=== PATIENT | female | born 1995 | race Caucasian/White ===

== ENCOUNTER 2017-06-05 16:28 | Emergency (ER) | payer BC ==
[2017-06-05 18:22] LABS: Hematocrit 40 % (35-47); Hemoglobin 13.4 g/dl (12.0-16.0); Mean Corpuscular HGB Conc 34 g/dl (31-36); Mean Corpuscular Hemoglobin 29 pg (27-31); Mean Corpuscular Volume 86 fL (80-97); Mean Platelet Volume 8 um3 (7.4-10.4); Red Blood Count 4.62 10^6/ul (4.0-5.4); Red Cell Distribution Width 14 % (10.5-15); White Blood Count 16.5 10^3/ul (3.5-10.8)
[2017-06-05 18:23] LABS: Add Diff/Slide Review? Manual Diff Added; Comments Flag Yes
[2017-06-05 18:37] LABS: Manual Entry Verification CAR0052; Mono Internal Control QC Line Present
[2017-06-05 18:42] LABS: Add Path Review? YES; Neutrophil % 30 % (38-83); RBC Morphology Normal (Normal); Reactive Lymph % 36 % (0-6)
[2017-06-05 18:58] VITALS: BP 136/84
--- NOTE | 2017-06-05 19:37 | ED ---
Kemal Nielson Auryana, scribed for Malcolm Covington MD on 06/05/17 at 1714 . Complex/Multi-Sys Presentation - HPI Summary HPI Summary: 21 year old female presents with fever and general illness starting 1 week ago that has gotten progressively worse. Patient reports that the fever started her symptoms, then with VÁSQUEZ, lymph node swelling, sore throat, and heat flashes. Patient was seen at - negative step and mono spot. Symptoms continued - exudates on tonsils and swelling. Seen again at - negative mono and UA showed signs of U.T.I. and given Rx for Clindamycin. Patient reports that most of the tonsilar swelling is gone, along with the white spots, but now still has sharp pain at the top right tonsil that radiates to the ear and has "purple spots". - History Of Current Complaint Chief Complaint: EDGeneral Time Seen by Provider: 06/05/17 16:45 Hx Obtained From: Patient Onset/Duration: Gradual Onset, Lasting Weeks, Still Present Timing: Constant Severity Currently: Mild Severity Initially: Mild Location: Pain At: - right ear by tonsil Associated Signs And Symptoms: Positive: Fever - Allergies/Home Medications Allergies/Adverse Reactions: Allergies Allergy/AdvReac Type Severity Reaction Status Date / Time No Known Allergies Allergy Verified 06/05/17 17:57 PMH/Surg Hx/FS Hx/Imm Hx Endocrine/Hematology History: Denies: Hx Diabetes Infectious Disease History: No Infectious Disease History: Denies: Traveled Outside the [place] in Last 30 Days - Family History Known Family History: Negative: Cardiac Disease, Hypertension, Diabetes - Social History Occupation: Student Lives: Alone Alcohol Use: None Hx Substance Use: No Substance Use Type: Reports: None Hx Tobacco Use: No Smoking Status (MU): Never Smoked Tobacco Review of Systems Positive: Fever, Other - heat flashes Eyes: Negative Positive: Sore Throat, Other - tonsilar swelling with white exudates, and surrounding lymph nodes swelling Cardiovascular: Negative Respiratory: Negative Gastrointestinal: Negative Genitourinary: Negative Positive: no symptoms reported Musculoskeletal: Negative Skin: Negative Positive: Headache Psychological: Normal All Other Systems Reviewed And Are Negative: Yes Physical Exam Triage Information Reviewed: Yes Vital Signs On Initial Exam: Initial Vitals Temp Pulse Resp BP Pulse Ox 98.9 F 99 20 141/91 99 06/05/17 16:30 06/05/17 16:30 06/05/17 16:30 06/05/17 16:30 06/05/17 16:30 Vital Signs Reviewed: Yes Appearance: Positive: Well-Appearing, No Pain Distress, Well-Nourished Skin: Positive: Warm, Skin Color Reflects Adequate Perfusion, Dry Head/Face: Positive: Normal Head/Face Inspection Eyes: Positive: Normal ENT: Positive: TMs normal, Tonsillar exudate - Exudative pharyngitis, Other Dental: Positive: Cervical Lymphadenopathy - Anterior cervical lymphadenopathy with mild tenderness Neck: Positive: Supple, Nontender Respiratory/Lung Sounds: Positive: Clear to Auscultation, Breath Sounds Present Cardiovascular: Positive: RRR Abdomen Description: Positive: Nontender, Soft, Other: - Non-tender over spleen and liver Bowel Sounds: Positive: Present Musculoskeletal: Positive: Normal Neurological: Positive: Normal Psychiatric: Positive: Normal, Affect/Mood Appropriate Diagnostics - Vital Signs Vital Signs Temp Pulse Resp BP Pulse Ox 06/05/17 16:34 98.9 F 104 20 141/91 98 06/05/17 16:30 98.9 F 99 20 141/91 99 - Laboratory Lab Results: Lab Results 06/05/17 Range/Units 18:12 WBC 16.5 H (3.5-10.8) 10^3/ul RBC 4.62 (4.0-5.4) 10^6/ul Hgb 13.4 (12.0-16.0) g/dl Hct 40 (35-47) % MCV 86 (80-97) fL MCH 29 (27-31) pg MCHC 34 (31-36) g/dl RDW 14 (10.5-15) % Plt Count 209 (150-450) 10^3/ul MPV 8 (7.4-10.4) um3 Absolute Neuts (auto) 3.4 (1.5-7.7) 10^3/ul Absolute Lymphs (auto) 11.3 H (1.0-4.8) 10^3/ul Absolute Monos (auto) 1.5 H (0-0.8) 10^3/ul Absolute Eos (auto) 0.1 (0-0.6) 10^3/ul Absolute Basos (auto) 0.3 H (0-0.2) 10^3/ul Absolute Nucleated RBC 0.05 10^3/ul Neutrophils % 30 L (38-83) % Lymphocytes % 28 (25-47) % Reactive Lymphs % 36 H (0-6) % Monocytes % 6 (0-13) % Normal RBC Morphology Normal (Normal) Hem Pathologist Commnt Pending Monoscreen Positive H (Negative) Result Diagrams: 06/05/17 18:12 Lab Statement: Any lab studies that have been ordered have been reviewed, and results considered in the medical decision making process. Complex Multi-Symp Course/Dx Course Of Treatment: Ms. Jackman was found to have mono and symptomatic treatment was discussed. - Diagnoses Provider Diagnoses: Mononucleosis Discharge - Discharge Plan Condition: Stable Disposition: HOME Patient Education Materials: Mononucleosis (ED) Referrals: [facility] [place] [facility]IAN REFERRAL [Outside] - 2 Days The documentation as recorded by the Kemal rider Auryana accurately reflects the service I personally performed and the decisions made by , Malcolm Covington MD.
== END 2017-06-05 18:56 | disposition home or self-care (01) ==
LOC: ED 16:28
DX: B27.90 Infectious mononucleosis, unspecified without complication (principal)
CPT/HCPCS: 36415; 85025; 85060; 86308; 99282